=== PATIENT | male | born 1970 | race Two or more races ===

== ENCOUNTER 2021-05-12 21:00 | Emergency (ER) | payer OTHER ==
[~2021-05-12] VITALS: Ht 170.2 cm; Wt 95.3 kg
[2021-05-12 21:03] VITALS: BP 136/94
== END 2021-05-12 23:14 | disposition home or self-care (01) ==
LOC: ER 21:03
DX: H11.152 Pinguecula, left eye (principal); D23.10 Other benign neoplasm of skin of unspecified eyelid, including canthus